=== PATIENT | male | born 1995 | race African-American/Black ===

== ENCOUNTER 2020-09-04 04:01 | Emergency (ER) | payer BC ==
[~2020-09-04] VITALS: Ht 170.1 cm; Wt 69.4 kg
[2020-09-04 04:17] VITALS: BP 140/73
--- NOTE | 2020-09-04 04:32 | ED Upper Extremity ---
General Chief Complaint: Laceration Stated Complaint: L HAND LACERATION Source: patient Exam Limitations: no limitations History of Present Illness Date Seen by Provider: Sep 04, 2020 Time Seen by Provider: 04:18 Initial Comments Here with report of laceration of the left middle finger on the dorsum. He was opening up a package with a knife and accidentally cut his finger. States that it was bleeding quite a bit and he wasn't necessarily organic, but had talked to his mom was very concerned. He ultimately presented. Bleeding is controlled currently. Tetanus is up-to-date. Denies other injury. Denies difficulty with movement or sensation. Onset: just prior to arrival (approximately 45 minutes ago) Severity: mild Pain/Injury Location: left 3rd finger Method of Injury: incised Modifying Factors: Improves With Immobilization, Improves With Rest Allergies and Home Medications Patient Home Medication List Home Medication List Reviewed: Yes Review of Systems Constitutional: no symptoms reported Respiratory: no symptoms reported Cardiovascular: no symptoms reported Skin: see HPI, lesions Psychiatric/Neurological: Denies Numbness, Denies Paresthesia Past Cbwfwrt-Agzjri-Mgszgt Hx Past Med/Social Hx: Reviewed Nursing Past Med/Soc Hx Patient Social History Alcohol Use: Denies Use Recreational Drug Use: No Past Medical History Surgeries: No Respiratory: No Cardiac: No Physical Exam Vital Signs Capillary Refill : Height, Weight, BMI Height: '" Weight: lbs. oz. kg; BMI Method: General Appearance: WD/WN, no apparent distress Cardiovascular: regular rate, rhythm, no murmur Respiratory: lungs clear, normal breath sounds Hand: normal ROM, Left, laceration Neurologic/Psychiatric: alert, oriented x 3 Skin: warm/dry, other (1 cm superficial laceration to the dorsum of the left third finger at the IP joint. Bleeding controlled) Progress/Results/Core Measures Progress Progress Note : Progress Note Seen and evaluated. Superficial wound noted with bleeding controlled. I do not believe this will require suturing. Wound cleaned. Antibiotic ointment applied and nonstick dressing covered by tube gauze and bulky fashion by nursing. Discharged home with return precautions. Patient verbalize understanding i nstructions and agreement with plan. Departure Impression Primary Impression: Laceration of left middle finger Qualified Codes: S61.213A - Laceration without foreign body of left middle finger without damage to nail, initial encounter Disposition: 01 HOME, SELF-CARE Condition: Improved Departure-Patient Inst. Decision time for Depature: 04:30 Referrals: NO,LOCAL PHYSICIAN (PCP/Family) Primary Care Physician Patient Instructions: Wound Care Add. Discharge Instructions: All discharge instructions reviewed with patient and/or family. Voiced understanding. Keep dressing in place for the next 48 hours. You may change it if it becomes soiled or significantly bloody. In 2 days, take dressing off and gently wash wound. You may reapply antibiotic ointment and Band-Aid or dressing as needed. You should change this twice daily for the next 3-4 days thereafter and then you may use dry Band-Aid over wound to protect it. This should heal over the next week or 2. Return for worse pain, weakness, redness up the hand, foul-smelling drainage, fever or other concerns as needed. STEVEN LOAIZA MD Sep 04, 2020 04:32
== END 2020-09-04 04:38 | disposition home or self-care (01) ==
LOC: ER 04:06
DX: S61.213A Laceration without foreign body of left middle finger without damage to nail, initial encounter (principal); W26.0XXA Contact with knife, initial encounter

== ENCOUNTER 2021-11-11 06:08 | Emergency (ER) | payer SELFPAY ==
[~2021-11-11] VITALS: Ht 172 cm; Wt 81.0 kg
[2021-11-11 06:37] LABS: BILIRUBIN,URINE NEGATIVE (NEGATIVE); CLARITY,URINE CLEAR; COLOR,URINE YELLOW; GLUCOSE, URINE (UA) NEGATIVE (NEGATIVE); KETONES,URINE NEGATIVE (NEGATIVE); LEUKOCYTE ESTERASE ,URINE NEGATIVE (NEGATIVE); NITRITE,URINE NEGATIVE (NEGATIVE); PROTEIN,URINE NEGATIVE (NEGATIVE)
--- NOTE | 2021-11-11 06:39 | ED Back Pain ---
General Chief Complaint: Back Problems Stated Complaint: BACK PAIN Source of Information: Patient Exam Limitations: No Limitations History of Present Illness Date Seen by Provider: Nov 11, 2021 Time Seen by Provider: 06:19 Initial Comments Patient to the ER by private conveyance with chief complaint for the past couple days he has had some left lower back pain paraspinous. Worse with positioning. He is also had all over body aches and for the past day or so been waking up several times in the night gasping for air. 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 He has all over body aches as well as a cough and feeling of shortness of air at times. He went to [facility] and had a COVID and flu swab that were negative. He has been using Tylenol with minimal relief of body aches symptoms. No known fevers. No nausea vomiting dysuria diarrhea dyspareunia or discharge. Allergies and Home Medications Allergies Coded Allergies: No Known Drug Allergies (Unverified , 11/11/21) Patient Home Medication List Home Medication List Reviewed: Yes Benzonatate (Tessalon Perles) 100 Mg Capsule, 100 MG PO Q6H PRN for COUGH Prescribed by: ANDREEA RIVERA on 11/11/21 0744 Cyclobenzaprine HCl (Cyclobenzaprine HCl) 10 Mg Tablet, 10 MG PO Q8H PRN for SPASMS Prescribed by: ANDREEA RIVERA on 11/11/21 0723 Review of Systems Constitutional: No chills, No fever; malaise EENTM: No ear discharge, No ear pain Respiratory: cough; No phlegm; short of breath; No wheezing Cardiovascular: No chest pain, No edema Gastrointestinal: No abdominal pain, No constipation, No diarrhea, No nausea, No vomiting Genitourinary: No discharge, No dysuria Musculoskeletal: see HPI, back pain; No joint pain All Other Systems Reviewed Negative Unless Noted: Yes Past Nqneknj-Pgwwlb-Fzwsdc Hx Patient Social History Tobacco Use?: No Use of E-Cig and/or Vaping dev: No Substance use?: No Immunizations Up To Date First/Initial COVID19 Vaccinat: yes Second COVID19 Vaccination Momo: yes Past Medical History Surgeries: No Respiratory: No Cardiac: No Neurological: No Genitourinary: No Gastrointestinal: No Musculoskeletal: No Endocrine: No HEENT: No Cancer: No Psychosocial: No Integumentary: No Blood Disorders: No Physical Exam Vital Signs Vital Signs - First Documented 11/11/21 06:49 Temp 36.8 Pulse 111 Resp 20 B/P (MAP) 180/90 (120) Pulse Ox 96 O2 Delivery Room Air Capillary Refill : Height, Weight, BMI Height: '" Weight: lbs. oz. kg; 23.00 BMI Method: General Appearance: No Apparent Distress, WD/WN HEENT: PERRL/EOMI, Pharynx Normal, Moist Mucous Membranes Neck: Full Range of Motion, Normal Inspection, Non Tender, Supple Cardiovascular: Regular Rate, Rhythm, No Edema, No Murmur, Normal Peripheral Pulses Respiratory: Lungs Clear, Normal Breath Sounds, No Accessory Muscle Use, No Respiratory Distress Peripheral Pulses: 2+ Radial Pulses (R), 2+ Radial Pulses (L) Gastrointestinal: Normal Bowel Sounds, No Organomegaly, Non Tender, Soft Back: Normal Inspection, No CVA Tenderness Extremity: Normal Capillary Refill, Normal Inspection, No Pedal Edema Neurologic/Psychiatric: Alert, Oriented x3 Skin: Normal Color, Warm/Dry Progress/Results/Core Measures Results/Orders Lab Results Laboratory Tests Test 11/11/21 06:31 11/11/21 06:34 11/11/21 06:40 Range/Units Urine Color YELLOW Urine Clarity CLEAR Urine pH 6.0 5-9 Urine Specific [place] 1.020 1.016-1.022 Urine Protein NEGATIVE NEGATIVE Urine Glucose (UA) NEGATIVE NEGATIVE Urine Ketones NEGATIVE NEGATIVE Urine Nitrite NEGATIVE NEGATIVE Urine Bilirubin NEGATIVE NEGATIVE Urine Urobilinogen 0.2 < = 1.0 MG/DL Urine Leukocyte Esterase NEGATIVE NEGATIVE Urine RBC (Auto) NEGATIVE NEGATIVE Urine RBC NONE /HPF Urine WBC NONE /HPF Urine Squamous Epithelial Cells NONE /HPF Urine Crystals NONE /LPF Urine Bacteria NEGATIVE /HPF Urine Casts NONE /LPF Urine Mucus NEGATIVE /LPF Urine Culture Indicated NO White Blood Count 6.1 4.3-11.0 10^3/uL Red Blood Count 5.06 4.30-5.52 10^6/uL Hemoglobin 14.9 13.3-17.7 g/dL Hematocrit 45 40-54 % Mean Corpuscular Volume 89 80-99 fL Mean Corpuscular Hemoglobin 29 25-34 pg Mean Corpuscular Hemoglobin Concent 33 32-36 g/dL Red Cell Distribution Width 12.8 10.0-14.5 % Platelet Count 297 130-400 10^3/uL Mean Platelet Volume 9.4 9.0-12.2 fL Immature Granulocyte % (Auto) 0 % Neutrophils (%) (Auto) 29 L 42-75 % Lymphocytes (%) (Auto) 47 H 12-44 % Monocytes (%) (Auto) 8 0-12 % Eosinophils (%) (Auto) 15 H 0-10 % Basophils (%) (Auto) 1 0-10 % Neutrophils # (Auto) 1.8 1.8-7.8 10^3/uL Lymphocytes # (Auto) 2.8 1.0-4.0 10^3/uL Monocytes # (Auto) 0.5 0.0-1.0 10^3/uL Eosinophils # (Auto) 0.9 H 0.0-0.3 10^3/uL Basophils # (Auto) 0.0 0.0-0.1 10^3/uL Immature Granulocyte # (Auto) 0.0 0.0-0.1 10^3/uL D-Dimer 0.16 0.00-0.49 UG/ML Sodium Level 141 135-145 MMOL/L Potassium Level 3.9 3.6-5.0 MMOL/L Chloride Level 104 98-107 MMOL/L Carbon Dioxide Level 26 21-32 MMOL/L Anion Gap 11 5-14 MMOL/L Blood Urea Nitrogen 17 7-18 MG/DL Creatinine 1.53 H 0.60-1.30 MG/DL Estimat Glomerular Filtration Rate 69 BUN/Creatinine Ratio 11 Glucose Level 95 70-105 MG/DL Calcium Level 9.5 8.5-10.1 MG/DL Corrected Calcium 9.4 8.5-10.1 MG/DL Total Bilirubin 0.2 0.1-1.0 MG/DL Aspartate Amino Transf (AST/SGOT) 33 5-34 U/L Alanine Aminotransferase (ALT/SGPT) 23 0-55 U/L Alkaline Phosphatase 61 40-136 U/L Total Creatine Kinase 696 H 30-200 U/L C-Reactive Protein High Sensitivity 0.16 0.00-0.50 MG/DL Total Protein 7.6 6.4-8.2 GM/DL Albumin 4.1 3.2-4.5 GM/DL Influenza Type A (RT-PCR) Not Detected Not Detecte Influenza Type B (RT-PCR) Not Detected Not Detecte SARS-CoV-2 RNA (RT-PCR) Not Detected Not Detecte My Orders Orders - ANDREEA RIVERA Cbc With Automated Diff (11/11/21 06:31) Comprehensive Metabolic Panel (11/11/21 06:31) Hs C Reactive Protein (11/11/21 06:31) Creatine Kinase (11/11/21 06:31) Ua Culture If Indicated (11/11/21 06:31) Covid 19 Inhouse Test (11/11/21 06:31) Influenza A And B By Pcr (11/11/21 06:31) Ketorolac Injection (Toradol Injection) (11/11/21 06:45) Ed Iv/Invasive Line Start (11/11/21 06:32) Lactated Ringers (Lr 1000 Ml Iv Solution (11/11/21 06:45) Chest 1 View, Ap/Pa Only (11/11/21 06:41) Fibrin Degradation Products (11/11/21 06:47) Ed Iv/Invasive Line Start (11/11/21 07:09) Lactated Ringers (Lr 1000 Ml Iv Solution (11/11/21 07:15) Medications Given in ED Current Medications Medications Dose Ordered Sig/Lucas Route Start Time Stop Time Status Last Admin Dose Admin Ketorolac Tromethamine 30 mg ONCE ONCE IVP 11/11/21 06:45 11/11/21 06:46 DC 11/11/21 06:39 30 MG Lactated Ringer's 1,000 ml @ 0 mls/hr Q0M ONCE IV 11/11/21 06:45 11/11/21 06:46 DC 11/11/21 06:40 0 MLS/HR Lactated Ringer's 1,000 ml @ 0 mls/hr Q0M ONCE IV 11/11/21 07:15 11/11/21 07:16 DC 11/11/21 07:15 0 MLS/HR Vital Signs/I&O 11/11/21 11/11/21 06:49 07:53 Temp 36.8 Pulse 111 73 Resp 20 18 B/P (MAP) 180/90 (120) 135/88 Pulse Ox 96 98 O2 Delivery Room Air Progress Progress Note #1: Time: 06:40 Progress Note Patient sounds to be having a viral syndrome. We will check for rhabdomyolysis electro light disorder since he is having some cramping and get some basic labs as well as give him a liter of fluids. We will give him some Toradol and get a chest x-ray and reswab him for COVID and flu. Progress Note #2: Time: 07:17 Progress Note Patient does have some modest amount of rhabdomyolysis in addition to a relative lymphocytosis and neutropenia often consistent with a viral syndrome. We will provide him with some muscle relaxers, topical creams, Tylenol Motrin. He states that after the Toradol his pain is significantly improved. We will give him a second liter of fluids and put him on a week's restrictions for exercise. Patient is in agreement with this plan. Diagnostic Imaging Diagonstic Imaging: Xray Plain Films/CT/US/NM/MRI: chest Comments [facility]. [place], [place] NAME: MARVIN GALVEZ [facility] REC#: [id number] PT STATUS: DEP ER : 1995 PHYSICIAN: ANDREEA RIVERA MD ADMIT DATE: 11/11/21/ER Signed Date of Exam:11/11/21 CHEST 1 VIEW, AP/PA ONLY CHEST 1 VIEW, AP/PA ONLY Indication: Shortness of air Comparison: None available. Findings: No focal airspace disease in the visualized lungs. Please note that the posterior lower lobes are poorly evaluated by portable radiography. No pleural effusion or pneumothorax. Normal cardiomediastinal silhouette. Impression: 1. No acute cardiopulmonary process by portable radiography. Dictated by: Dictated on workstation # [id number] Dict: 11/11/21817 Trans: 11/11/21817 [facility] [id number] Interpreted by: RAFIA PATTERSON MD Electronically signed by: RAFIA PATTERSON MD 11/11/21817 Reviewed: Reviewed by Me Departure Impression Primary Impression: Exertional rhabdomyolysis Additional Impression: Bronchitis Disposition: 01 HOME, SELF-CARE Condition: Stable Departure-Patient Inst. Decision time for Depature: 07:42 Referrals: NO,LOCAL PHYSICIAN (PCP) Primary Care Physician SOPHIA HUGHES MD Patient Instructions: Rhabdomyolysis, Acute Bronchitis, Adult (DC) Add. Discharge Instructions: The combination of a nonspecific virus and exertional rhabdomyolysis is result ing in your current symptoms. Rhabdomyolysis is the breakdown of muscle proteins usually due to overexertion. For the next week you should limit your strenuous exercise to about half an hour a day or less and drink lots of fluids. The broken down proteins from growing muscle if they accumulate to great amounts can cause body aches and eventually kidney failure. Your kidney func tion today is okay and as long as you drink plenty of fluids over the next week or 2 you will flush these proteins out naturally through your urine and your symptoms will improve. You can use ibuprofen 800 mg every 8 hours as necessary for body aches. You can use Tylenol 1000 mg every 8 hours as necessary for body aches. Topical creams such as icy hot, Biofreeze or blue emu can be helpful for muscle aches. If you have muscle spasms then I suggest using cyclobenzaprine. Cyclobenzaprine 1 tablet every 8 hours as necessary for muscle spasms. Will cause drowsiness and should not be combined with alcohol, driving long distances or operating heavy machinery. Tessalon Perles 1 capsule every 6 hours as necessary for cough. Humidifiers and vapor rubs may also be helpful for cough and breathing issues especially at night. If you have new or worrisome symptoms then I encourage you to return to either the ER or [facility]. All discharge instructions reviewed with patient and/or family. Voiced und erstanding. Scripts Benzonatate (TESSALON PERLES) 100 Mg Capsule 100 MG PO Q6H PRN for COUGH, #20 CAP 0 Refills Prov: ANDREEA RIVERA 11/11/21 Cyclobenzaprine HCl (Cyclobenzaprine HCl) 10 Mg Tablet 10 MG PO Q8H PRN for SPASMS, #15 TAB 0 Refills Prov: ANDREEA RIVERA 11/11/21 Work/School Note: School/Childcare Release Date Seen in the Emergency Department: Nov 11, 2021 Time Dismissed from Emergency Department: 07:23 Return to School: Nov 12, 2021 Restrictions: Need Release from Doctor Other Restrictions Listed Below: Strenuous exercise 30 minutes or less daily until 11/19/2021. Copy Copies To 1: SOPHIA HUGHES MD, TITUS J Nov 11, 2021 06:39
[2021-11-11 06:40] LABS: BASOPHILS % (AUTO) 1 % (0-10); EOSINOPHILS # (AUTO) 0.9 10^3/uL (0.0-0.3); EOSINOPHILS % (AUTO) 15 % (0-10); HEMATOCRIT 45 % (40-54); HEMOGLOBIN 14.9 g/dL (13.3-17.7); LYMPHOCYTES # (AUTO) 2.8 10^3/uL (1.0-4.0); LYMPHOCYTES % (AUTO) 47 % (12-44); MEAN CORPUSCULAR HEMOGLOBIN 29 pg (25-34); MEAN CORPUSCULAR HGB CONC 33 g/dL (32-36); MEAN CORPUSCULAR VOLUME 89 fL (80-99); MEAN PLATELET VOLUME 9.4 fL (9.0-12.2); MONOCYTES # (AUTO) 0.5 10^3/uL (0.0-1.0); MONOCYTES % (AUTO) 8 % (0-12); NEUTROPHILS # (AUTO) 1.8 10^3/uL (1.8-7.8); NEUTROPHILS % (AUTO) 29 % (42-75); PLATELET COUNT 297 10^3/uL (130-400); WHITE BLOOD COUNT 6.1 10^3/uL (4.3-11.0)
[2021-11-11] MEDS ORDERED: KETOROLAC 30 MG/ML VIAL IVP ONE (06:45)
[2021-11-11] MEDS ORDERED: LACTATED RINGERS 1,000 ML IV ONE ×2 (06:45→07:15)
[2021-11-11 06:50] LABS: BACTERIA,URINE NEGATIVE /HPF
[2021-11-11 06:52] LABS: ALBUMIN 4.1 GM/DL (3.2-4.5); POTASSIUM 3.9 MMOL/L (3.6-5.0)
[2021-11-11 06:54] LABS: CALCIUM 9.5 MG/DL (8.5-10.1)
[2021-11-11 06:55] LABS: TOTAL PROTEIN 7.6 GM/DL (6.4-8.2)
[2021-11-11 06:57] LABS: BILIRUBIN,TOTAL 0.2 MG/DL (0.1-1.0)
[2021-11-11 06:59] LABS: CREATININE SERUM 1.53 MG/DL (0.60-1.30)
[2021-11-11] MEDS ORDERED: CYCL10TA25 PO (07:23)
[2021-11-11] MEDS ORDERED: BENZ100C18 PO (07:44)
[2021-11-11 07:53] VITALS: BP 135/88
--- NOTE | 2021-11-11 08:19 | Diagnostic Imaging Report ---
CHEST 1 VIEW, AP/PA ONLY Indication: Shortness of air Comparison: None available. Findings: No focal airspace disease in the visualized lungs. Please note that the posterior lower lobes are poorly evaluated by portable radiography. No pleural effusion or pneumothorax. Normal cardiomediastinal silhouette. Impression: 1. No acute cardiopulmonary process by portable radiography. Dictated by: Dictated on workstation # [id number]
== END 2021-11-11 07:52 | disposition home or self-care (01) ==
LOC: EDUNIT# 06:08 → ER 06:10
DX: M62.82 Rhabdomyolysis (principal); J40 Bronchitis, not specified as acute or chronic; Z20.822 Contact with and (suspected) exposure to COVID-19
CPT/HCPCS: 36415; 71045; 80053; 81000; 82550; 85025; 85379; 86141; 87636

== ENCOUNTER 2021-11-15 08:15 | Emergency (ER) | payer SELFPAY ==
[~2021-11-15] VITALS: Ht 167 cm; Wt 68.0 kg
[~2021-11-15 08:15] MED LIST: BENZ100C18 PO; CYCL10TA25 PO
[2021-11-15 08:25] VITALS: BP 138/84
[2021-11-15] MEDS ORDERED: LACTATED RINGERS 2,000 ML IV SCH (08:45)
--- NOTE | 2021-11-15 08:45 | ED General ---
General Chief Complaint: Back Problems Stated Complaint: BACK PAIN/SEEN 11/11 Nursing Triage Note: ARRIVED VIA AMB TO ROOM 06 WITH COMPLAINTS OF LEFT LOWER BACK PAIN AND ANXIETY. WAS SEEN HERE ON THE . Source of Information: Patient Exam Limitations: No Limitations History of Present Illness Date Seen by Provider: Nov 15, 2021 Time Seen by Provider: 08:25 Initial Comments Patient is a 25-year-old male who presents to the emergency department with a chief complaint of low back ache, tingling in his hands and face onset during the night. He was recently seen on November 11 and diagnosed with mild rhabdomyolysis. 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 He states he has been doing less exertional activities but did do about a 45-minute workout on Friday of this week. States he has had a little bit of cramping in his lower extremities. He states he has been orally hydrating/pushing fluids. He reports his urine is light yellow. He has had some significant upper respiratory congestion. Has so far tested negative for COVID twice. He is vaccinated without a booster. Last immunization was in the spring. He does report a couple of positive contacts on the track team recently and his mom was COVID-positive during the holidays. He did not stay with her however. He has a very minimal cough. A mild sore throat. Significant right-sided nasal mucosal congestion. He states that he cannot remember the last time the right nare was "clear". He does not use any nasal mists or sprays. Body aches. No reported fevers, is not short of breath. No medications on a daily basis. Non-smoker All other review of systems reviewed and negative except as stated. Timing/Duration: 1 Week Severity: Moderate Associated Systoms: Other (Low back pain, facial and hand tingling) Allergies and Home Medications Allergies Coded Allergies: No Known Drug Allergies (Unverified , 11/11/21) Patient Home Medication List Home Medication List Reviewed: Yes Benzonatate (Tessalon Perles) 100 Mg Capsule, 100 MG PO Q6H PRN for COUGH Prescribed by: ANDREEA RIVERA on 11/11/21 0744 Cyclobenzaprine HCl (Cyclobenzaprine HCl) 10 Mg Tablet, 10 MG PO Q8H PRN for SPASMS Prescribed by: ANDREEA RIVERA on 11/11/21 0723 Review of Systems Review of Systems Constitutional: see HPI EENTM: nose congestion (Right nare greater than left), throat pain (Mild) Respiratory: cough (Minimal) Cardiovascular: no symptoms reported Gastrointestinal: no symptoms reported Genitourinary: no symptoms reported Musculoskeletal: back pain (Low back left lumbar) Skin: no symptoms reported Psychiatric/Neurological: Anxiety All Other Systems Reviewed Negative Unless Noted: Yes Past Zxhybvu-Imsrhq-Mzogfs Hx Patient Social History Smoking Status: Never a Smoker Alcohol Use?: Yes Alcohol Frequency: Once in a while Immunizations Up To Date First/Initial COVID19 Vaccinat: yes Second COVID19 Vaccination Momo: 03/23 COVID19 Vaccine Managed Care Provider: MODERNA Past Medical History Surgeries: No Respiratory: No Cardiac: No Neurological: No Genitourinary: No Gastrointestinal: No Musculoskeletal: No Endocrine: No HEENT: No Cancer: No Psychosocial: No Integumentary: No Blood Disorders: No Physical Exam Vital Signs Vital Signs - First Documented 11/15/21 08:25 Temp 36.3 Pulse 94 Resp 16 B/P (MAP) 138/84 (102) Pulse Ox 97 O2 Delivery Room Air Capillary Refill : Less Than 3 Seconds Height, Weight, BMI Height: '" Weight: lbs. oz. kg; 24.00 BMI Method: General Appearance: No Apparent Distress, WD/WN Eyes: Bilateral Eye Normal Inspection, Bilateral Eye PERRL, Bilateral Eye EOMI HEENT: PERRL/EOMI, Pharynx Normal, Other (Significant right nare mucosal congestion, appears like there may be a cyst inside the nare, gelatinous appearance. Does not resemble swollen nasal turbinate; (patient has never had ENT evaluation)) Neck: Normal Inspection Respiratory: Lungs Clear, Normal Breath Sounds, No Accessory Muscle Use, No Respiratory Distress Cardiovascular: Regular Rate, Rhythm, Normal Peripheral Pulses Gastrointestinal: Non Tender, Soft Back: Normal Inspection, CVA Tenderness (L) (Mild tenderness low left CVA area, no overlying rashes) Extremity: Normal Capillary Refill, Normal Inspection, Normal Range of Motion, Non Tender, No Calf Tenderness, No Pedal Edema Neurologic/Psychiatric: Alert, Oriented x3, No Motor/Sensory Deficits, audiology assistant II- XII Norm as Tested, Other (Slightly anxious in appearance) Skin: Normal Color, Warm/Dry Progress/Results/Core Measures Suspected Sepsis SIRS Temperature: Pulse: 94 Respiratory Rate: 16 Laboratory Tests 11/15/21 08:48: White Blood Count 5.9 Blood Pressure 138 /84 Mean: 102 Laboratory Tests 11/15/21 08:48: Creatinine 1.39H, Platelet Count 263, Total Bilirubin 0.4 Results/Orders Lab Results Laboratory Tests Test 11/15/21 08:45 11/15/21 08:48 11/15/21 10:00 Range/Units SARS-CoV-2 RNA (RT-PCR) Not Detected Not Detecte White Blood Count 5.9 4.3-11.0 10^3/uL Red Blood Count 5.14 4.30-5.52 10^6/uL Hemoglobin 14.9 13.3-17.7 g/dL Hematocrit 44 40-54 % Mean Corpuscular Volume 86 80-99 fL Mean Corpuscular Hemoglobin 29 25-34 pg Mean Corpuscular Hemoglobin Concent 34 32-36 g/dL Red Cell Distribution Width 12.6 10.0-14.5 % Platelet Count 263 130-400 10^3/uL Mean Platelet Volume 9.6 9.0-12.2 fL Immature Granulocyte % (Auto) 0 % Neutrophils (%) (Auto) 35 L 42-75 % Lymphocytes (%) (Auto) 39 12-44 % Monocytes (%) (Auto) 7 0-12 % Eosinophils (%) (Auto) 18 H 0-10 % Basophils (%) (Auto) 0 0-10 % Neutrophils # (Auto) 2.1 1.8-7.8 10^3/uL Lymphocytes # (Auto) 2.3 1.0-4.0 10^3/uL Monocytes # (Auto) 0.4 0.0-1.0 10^3/uL Eosinophils # (Auto) 1.1 H 0.0-0.3 10^3/uL Basophils # (Auto) 0.0 0.0-0.1 10^3/uL Immature Granulocyte # (Auto) 0.0 0.0-0.1 10^3/uL Neutrophils % (Manual) 40 % Lymphocytes % (Manual) 39 % Monocytes % (Manual) 10 % Eosinophils % (Manual) 11 % Tear Drop Cells MODERATE Elliptocytes SLIGHT Blood Morphology Comment NA Sodium Level 140 135-145 MMOL/L Potassium Level 3.9 3.6-5.0 MMOL/L Chloride Level 104 98-107 MMOL/L Carbon Dioxide Level 26 21-32 MMOL/L Anion Gap 10 5-14 MMOL/L Blood Urea Nitrogen 12 7-18 MG/DL Creatinine 1.39 H 0.60-1.30 MG/DL Estimat Glomerular Filtration Rate 73 BUN/Creatinine Ratio 9 Glucose Level 87 70-105 MG/DL Calcium Level 9.3 8.5-10.1 MG/DL Corrected Calcium 9.2 8.5-10.1 MG/DL Total Bilirubin 0.4 0.1-1.0 MG/DL Aspartate Amino Transf (AST/SGOT) 24 5-34 U/L Alanine Aminotransferase (ALT/SGPT) 21 0-55 U/L Alkaline Phosphatase 56 40-136 U/L Total Creatine Kinase 236 H 30-200 U/L Total Protein 7.3 6.4-8.2 GM/DL Albumin 4.1 3.2-4.5 GM/DL Urine Color YELLOW Urine Clarity CLEAR Urine pH 6.0 5-9 Urine Specific [place] <=1.005 1.016-1.022 Urine Protein NEGATIVE NEGATIVE Urine Glucose (UA) NEGATIVE NEGATIVE Urine Ketones NEGATIVE NEGATIVE Urine Nitrite NEGATIVE NEGATIVE Urine Bilirubin NEGATIVE NEGATIVE Urine Urobilinogen 0.2 < = 1.0 MG/DL Urine Leukocyte Esterase NEGATIVE NEGATIVE Urine RBC (Auto) NEGATIVE NEGATIVE Urine RBC NONE /HPF Urine WBC RARE /HPF Urine Squamous Epithelial Cells RARE /HPF Urine Renal Epithelial Cells NONE /HPF Urine Crystals NONE /LPF Urine Bacteria NEGATIVE /HPF Urine Casts NONE /LPF Urine Mucus NEGATIVE /LPF Urine Culture Indicated NO My Orders Orders - CHIQUITA MELENDEZ MD Covid 19 Inhouse Test (11/15/21 08:37) Ed Iv/Invasive Line Start (11/15/21 08:37) Cbc With Automated Diff (11/15/21 08:37) Comprehensive Metabolic Panel (11/15/21 08:37) Creatine Kinase (11/15/21 08:37) Ua Culture If Indicated (11/15/21 08:37) Isolation Central Supply Req (11/15/21 08:37) Lactated Ringers (Lr 1000 Ml Iv Solution (11/15/21 08:45) Manual Differential (11/15/21 08:48) Vital Signs/I&O 11/15/21 08:25 Temp 36.3 Pulse 94 Resp 16 B/P (MAP) 138/84 (102) Pulse Ox 97 O2 Delivery Room Air Capillary Refill : Less Than 3 Seconds Blood Pressure Mean: 102 Progress Note : Time: 10:32 Progress Note Patient's labs reviewed and significantly improving from previous labs. renal function improved. VS stable. given 2 liters of LR. reviewed discharge i nstructions. FOllow up recommended with [facility] and ENT. Departure Impression Primary Impression: Anxiety about health Additional Impressions: Chronic nasal congestion Mild dehydration Disposition: HOME, SELF-CARE Condition: Stable Departure-Patient Inst. Referrals: LILIA JARRELL MD NO,LOCAL PHYSICIAN (PCP) Primary Care Physician Patient Instructions: Dehydration, Adult (DC) Add. Discharge Instructions: Continue to push lots of fluids/Gatorade/fitness shane. Avoid ibuprofen for now, take Tylenol as needed for aches and pains or any fever over 100.4. Follow-up with [facility] as needed. You also should follow-up with an ENT doctor, contact for one has been provided on this paperwork. Return to the emergency room for any other new, emergent or concerning symptoms CHIQUITA MELENDEZ MD Nov 15, 2021 08:45
[2021-11-15 08:54] LABS: BASOPHILS % (AUTO) 0 % (0-10); EOSINOPHILS # (AUTO) 1.1 10^3/uL (0.0-0.3); EOSINOPHILS % (AUTO) 18 % (0-10); HEMATOCRIT 44 % (40-54); HEMOGLOBIN 14.9 g/dL (13.3-17.7); LYMPHOCYTES # (AUTO) 2.3 10^3/uL (1.0-4.0); LYMPHOCYTES % (AUTO) 39 % (12-44); MEAN CORPUSCULAR HEMOGLOBIN 29 pg (25-34); MEAN CORPUSCULAR HGB CONC 34 g/dL (32-36); MEAN CORPUSCULAR VOLUME 86 fL (80-99); MEAN PLATELET VOLUME 9.6 fL (9.0-12.2); MONOCYTES # (AUTO) 0.4 10^3/uL (0.0-1.0); MONOCYTES % (AUTO) 7 % (0-12); NEUTROPHILS # (AUTO) 2.1 10^3/uL (1.8-7.8); NEUTROPHILS % (AUTO) 35 % (42-75); PLATELET COUNT 263 10^3/uL (130-400); WHITE BLOOD COUNT 5.9 10^3/uL (4.3-11.0)
[2021-11-15 09:05] LABS: ALBUMIN 4.1 GM/DL (3.2-4.5); POTASSIUM 3.9 MMOL/L (3.6-5.0)
[2021-11-15 09:06] LABS: CALCIUM 9.3 MG/DL (8.5-10.1)
[2021-11-15 09:08] LABS: TOTAL PROTEIN 7.3 GM/DL (6.4-8.2)
[2021-11-15 09:09] LABS: BILIRUBIN,TOTAL 0.4 MG/DL (0.1-1.0)
[2021-11-15 09:11] LABS: CREATININE SERUM 1.39 MG/DL (0.60-1.30)
[2021-11-15 09:12] LABS: EOSINOPHILS % (MANUAL) 11 %; LYMPHOCYTES % (MANUAL) 39 %; MONOCYTES % (MANUAL) 10 %; NEUTROPHILS % (MANUAL) 40 %; TEAR DROP CELLS MODERATE
[2021-11-15 09:13] LABS: ELLIPT/OVALOCYTES SLIGHT
[2021-11-15 10:06] LABS: BILIRUBIN,URINE NEGATIVE (NEGATIVE); CLARITY,URINE CLEAR; COLOR,URINE YELLOW; GLUCOSE, URINE (UA) NEGATIVE (NEGATIVE); KETONES,URINE NEGATIVE (NEGATIVE); LEUKOCYTE ESTERASE ,URINE NEGATIVE (NEGATIVE); NITRITE,URINE NEGATIVE (NEGATIVE); PROTEIN,URINE NEGATIVE (NEGATIVE)
[2021-11-15 10:13] LABS: BACTERIA,URINE NEGATIVE /HPF; SQUAMOUS EPITHELIAL CELL,UR RARE /HPF; WBC,URINE RARE /HPF
== END 2021-11-15 10:50 | disposition home or self-care (01) ==
LOC: EDUNIT# 08:15 → ER 08:18
DX: F41.9 Anxiety disorder, unspecified (principal); R09.81 Nasal congestion; E86.0 Dehydration; Z20.822 Contact with and (suspected) exposure to COVID-19
CPT/HCPCS: 36415; 80053; 81000; 82550; 85007; 85027; 87636

== ENCOUNTER 2022-02-21 15:43 | Emergency (ER) | payer SELFPAY ==
[~2022-02-21] VITALS: Ht 167 cm; Wt 68.0 kg
[2022-02-21] MEDS ORDERED: LACTATED RINGERS 1,000 ML IV STA (16:07)
--- NOTE | 2022-02-21 16:07 | ED General ---
General Chief Complaint: General Problems/Pain Stated Complaint: WEAK Nursing Triage Note: PT STATES WEAKNESS, N/V FOR THE PAST WEEK, OFF AND ON FOR THE PAST YR HAVING FULL BODY CRAMPS AFTER TRAINING Source of Information: Patient Exam Limitations: No Limitations History of Present Illness Date Seen by Provider: Feb 21, 2022 Time Seen by Provider: 15:46 Initial Comments 26yoM otherwise healthy coming in due to 1 week of general malaise and body cramps with general weakness. One episode of nausea with nb/nb vomiting a few days ago. Last went to [facility] and was told he had rhabdomyolysis. He was discharged and told to drink a lot of water since then. Denies any chest pain, SOA, abd pain, focal weakness, or any other concerns. Allergies and Home Medications Allergies Coded Allergies: No Known Drug Allergies (Unverified , 11/11/21) Patient Home Medication List Home Medication List Reviewed: Yes Benzonatate (Tessalon Perles) 100 Mg Capsule, 100 MG PO Q6H PRN for COUGH Prescribed by: ANDREEA RIVERA on 11/11/21 0744 Cyclobenzaprine HCl (Cyclobenzaprine HCl) 10 Mg Tablet, 10 MG PO Q8H PRN for SPASMS Prescribed by: ANDREEA RIVERA on 11/11/21 0723 Review of Systems Review of Systems Constitutional: No chills, No fever; malaise, weakness EENTM: no symptoms reported Respiratory: no symptoms reported Cardiovascular: no symptoms reported Gastrointestinal: no symptoms reported Genitourinary: no symptoms reported Musculoskeletal: no symptoms reported Skin: no symptoms reported Psychiatric/Neurological: No Symptoms Reported Hematologic/Lymphatic: No Symptoms Reported Immunological/Allergic: no symptoms reported All Other Systems Reviewed Negative Unless Noted: Yes Past [id number] Hx Patient Social History Tobacco Use?: No Immunizations Up To Date First/Initial COVID19 Vaccinat: yes Second COVID19 Vaccination Momo: 03/23 Past Medical History Surgeries: No Respiratory: No Cardiac: No Neurological: No Genitourinary: No Gastrointestinal: No Musculoskeletal: No Endocrine: No HEENT: No Cancer: No Psychosocial: No Integumentary: No Blood Disorders: No Physical Exam Vital Signs Vital Signs - First Documented 02/21/22 15:58 Temp 37.2 Pulse 100 Resp 18 B/P (MAP) 150/81 (104) Pulse Ox 97 O2 Delivery Room Air Capillary Refill : Less Than 3 Seconds Height, Weight, BMI Height: '" Weight: lbs. oz. kg; 24.00 BMI Method: General Appearance: No Apparent Distress, WD/WN Eyes: Bilateral Eye Normal Inspection HEENT: PERRL/EOMI, Normal ENT Inspection, Pharynx Normal Neck: Full Range of Motion, Normal Inspection, Non Tender, Supple Respiratory: Chest Non Tender, Lungs Clear, Normal Breath Sounds, No Accessory Muscle Use, No Respiratory Distress Cardiovascular: Regular Rate, Rhythm, No Edema, Normal Peripheral Pulses Gastrointestinal: Normal Bowel Sounds, Non Tender, Soft; No Distended, No Guarding Back: Normal Inspection, No CVA Tenderness, No Vertebral Tenderness Extremity: Normal Capillary Refill, Normal Inspection, Normal Range of Motion, Non Tender, No Calf Tenderness, No Pedal Edema Neurologic/Psychiatric: Alert, No Motor/Sensory Deficits, Normal Mood/Affect Skin: Normal Color, Warm/Dry Lymphatic: No Adenopathy Progress/Results/Core Measures Suspected Sepsis SIRS Temperature: Pulse: 100 Respiratory Rate: 18 Blood Pressure 150 /81 Mean: 104 Laboratory Tests 02/21/22 16:35: Creatinine 1.36H Results/Orders Lab Results Laboratory Tests Test 02/21/22 16:35 Range/Units Erythrocyte Sedimentation Rate 2 0-15 MM/HR Sodium Level 140 135-145 MMOL/L Potassium Level 3.8 3.6-5.0 MMOL/L Chloride Level 105 98-107 MMOL/L Carbon Dioxide Level 23 21-32 MMOL/L Anion Gap 12 5-14 MMOL/L Blood Urea Nitrogen 15 7-18 MG/DL Creatinine 1.36 H 0.60-1.30 MG/DL Estimat Glomerular Filtration Rate 75 BUN/Creatinine Ratio 11 Glucose Level 107 H 70-105 MG/DL Calcium Level 9.4 8.5-10.1 MG/DL Total Creatine Kinase 1501 H 30-200 U/L C-Reactive Protein High Sensitivity 0.02 0.00-0.50 MG/DL Thyroid Stimulating Hormone (TSH) 1.06 0.35-4.94 UIU/ML My Orders Orders - MIRNA RODRIGUEZ MD Basic Metabolic Panel (02/21/22 16:07) Creatine Kinase (02/21/22 16:07) Lactated Ringers (Lr 1000 Ml Iv Solution (02/21/22 16:07) Hs C Reactive Protein (02/21/22 16:17) Hepatitis Panel Acute (02/21/22 16:17) Thyroid Stimulating Hormone (02/21/22 16:17) Erythrocyte Sedimentation Rate (02/21/22 16:17) Anti-Nuclear Ab (Suzie) Analyzer (02/21/22 16:17) Syphilis Antibody Screen (02/21/22 16:17) Vital Signs/I&O 02/21/22 15:58 Temp 37.2 Pulse 100 Resp 18 B/P (MAP) 150/81 (104) Pulse Ox 97 O2 Delivery Room Air Capillary Refill : Less Than 3 Seconds Blood Pressure Mean: 104 Progress Note : Progress Note 26-year-old male with above history coming in feeling generally weak and with malaise. Had known exertional rhabdo last week and continue to run through the weekend. CK here is 1500 with creatinine 1.36 which is an improvement from previous. He was given a bolus of IV fluids through his IV here. I contacted his sports medicine physician from his college and discussed the patient's case. He had a order some send out labs which she will follow up on. He will follow- up in clinic next week. The patient was then discharged home in stable condition with strict return precautions. He is tolerating p.o. and I have instructed him to drink a lot of water. He should avoid any exercise until derek ared by his physician. Departure Impression Primary Impression: Exertional rhabdomyolysis Disposition: HOME, SELF-CARE Condition: Stable Departure-Patient Inst. Decision time for Depature: 17:29 Referrals: NO,LOCAL PHYSICIAN (PCP/Family) Primary Care Physician Patient Instructions: Rhabdomyolysis (DC) Add. Discharge Instructions: Follow-up with the [facility] next week and see Dr. Sanford and/or Dr. Madsen. Drink plenty of water. Do not exercise until cleared by your doctor at [facility]. Work/School Note: School/Childcare Release Date Seen in the Emergency Department: Feb 21, 2022 Time Dismissed from Emergency Department: 17:29 Return to School: Feb 22, 2022 Restrictions: No Sports-Until Released MIRNA RODRIGUEZ MD Feb 21, 2022 16:07
[2022-02-21 16:57] LABS: POTASSIUM 3.8 MMOL/L (3.6-5.0)
[2022-02-21 16:58] LABS: CALCIUM 9.4 MG/DL (8.5-10.1)
[2022-02-21 17:03] LABS: CREATININE SERUM 1.36 MG/DL (0.60-1.30)
[2022-02-21 17:55] VITALS: BP 148/72
[2022-02-21 22:23] LABS: HEPATITIS C ANTIBODY C Non-Reactive (Non-Reactive)
== END 2022-02-21 17:55 | disposition home or self-care (01) ==
LOC: EDUNIT# 15:43 → ER 15:46
DX: M62.82 Rhabdomyolysis (principal)
CPT/HCPCS: 36415; 80048; 80074; 82550; 84443; 85652; 86038; 86039; 86141; 86780

== ENCOUNTER 2022-10-05 11:21 | Emergency (ER) | payer SELFPAY ==
[~2022-10-05] VITALS: Ht 170 cm; Wt 68.0 kg
[2022-10-05 12:41] VITALS: BP 127/83
== END 2022-10-05 12:41 | disposition left against medical advice (07) ==
LOC: EDUNIT# 11:21 → ER 11:23
DX: R53.83 Other fatigue (principal); R25.2 Cramp and spasm; Z28.310 Unvaccinated for COVID-19
CPT/HCPCS: 99281